=== PATIENT | male | born 1975 | race Caucasian/White ===

== ENCOUNTER 2024-01-19 08:55 | Emergency (ER) | payer OTHER, SELFPAY ==
[2024-01-19 09:12] VITALS: BP 135/71
--- NOTE | 2024-01-19 09:41 | ED.GENMED ---
History of Present Illness
General
Chief Complaint: Skin Surface Trauma
Source: patient
Time Seen by Provider: 01/19/24 09:25
History of Present Illness
History of Present Illness:
48-year-old male with no significant past medical history presenting to the emergency department for evaluation after he punched a glass door last night around 9 PM. At the time he sustained injury to the right thumb, index and middle finger but
states due to intoxication he decided just to put duct tape around the area. This morning patient still noted bleeding so change the duct tape to multiple bandages and decided to come to the ER for further evaluation. Patient notes that he drinks
alcohol nightly. He is right-hand dominant, tetanus is up-to-date and no other injuries were sustained. 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
Past History
Past History
ED Past Medical History: Psychiatric
ED Past Surgical History: Orthopedic
Social History
Tobacco: Non-smoker
Alcohol: Daily
Drug: None
Personal:
Living: with family
Employment: Employed
Review of Systems
Review of Systems
All Other Systems: ROS reviewed and negative except as documented in HPI and ROS
Phy Exam
Physical Exam
Physical Exam:
AAO times three, in nad. Patient smells of alcohol and still appears intoxicated
Right Hand: Multiple superficial abrasions along the dorsal surface of the thumb. 2 separate small lacerations. most distal measures 0.8cm. most proximal measuring 5mm. No active bleeding. Right index finger: 2 cm partial-thickness laceration to
the dorsal aspect at the level of the PIP joint without any active bleeding. Right middle finger: Superficial abrasions without any active bleeding
Extrem: hand/wrist/fingers held in normal resting position
Flexor Tendons-Full active/passive ROM, nl flexion of all superficialis/profundus tendons against resistance
Extensor Tendons-Full active/passive ROM, and nl extension of all fingers against resistance
No FB seen on exam (s/p anesthesia)
Normal light tough
Pt denies sensation/concern for fracture, foreign body, excessive debris, numbness/tingling of fingers, weakness of fingers, of difficulty in moving any joint.
Scores
Heart Failure Risk
Heart Failure Risk Score: Not Applicable
Heart Score for Chest Pain Patients
STEMI patient?: Not applicable
Withdrawal Assessment of Alcohol
Withdrawal Assessment Completed?: Not applicable
Course
Orders/Labs/Results
Orders:
Orders
01/19/24 09:16
CR Hand - Right Min 3 Views Urgent
Comment:
Reason For Exam: pain
Vital Signs
Initial and Last Documented VS:
Initial Vital Signs
Temp Pulse Resp BP Pulse Ox
97.9 F 86 20 135/71 96
01/19/24 09:12 01/19/24 09:12 01/19/24 09:12 01/19/24 09:12 01/19/24 09:12
Last Documented Vital Signs
Temp Pulse Resp BP Pulse Ox
97.9 F 86 20 135/71 96
01/19/24 09:12 01/19/24 09:12 01/19/24 09:12 01/19/24 09:12 01/19/24 09:12
Procedures
Laceration Closure
Right Second Finger:
Status of Wound: clean
Size of Wound in cm: 2
Description of Wound Edges: sharp
Preparation: cleaned with saline and cleaned with Betadine
Anesthesia: Digital-Regional
Type of Closure: single layer closure
Skin Closure Material: 5-0 nylon
Number of sutures: 9
Right Thumb:
Status of Wound: clean
Size of Wound in cm: 1
Description of Wound Edges: sharp
Preparation: cleaned with saline and cleaned with Betadine
Anesthesia: Digital-Regional
Skin Closure Material: 5-0 nylon
Number of sutures: 4
Additional information:
More distal lac received 3 sutures and more proximal lac received 1 suture
MDM/Problems Addressed
Differential Diagnosis Includes:
Laceration, at this time I do not have concern for foreign body/fracture/tendon/nerve injury but given level of intoxication will obtain x-ray
MDM/Problems Addressed:
48-year-old male presenting emergency department for evaluation of a punching glass door last night sustaining injury to the right thumb index and middle finger. Index finger with the largest of the lacerations that will require repair. Repair as
above. I loosely approximated the skin given the duration that past after sustaining the laceration. Patient advised on wound care. Suture removal 10 to 12 days. Aware of return precautions to the ER.
*Radiology
Radiology exam reviewed: preliminary read by ED provider (No acute fracture or foreign body)
*Pulse Oximetry
Patient hypoxic: no
*Critical Care Note
Total Time (30-74mins, 75-104mins- exclusive of procedures): Not Applicable
ED Attending Note
-
Portions of this chart may have been created with voice recognition software.� Occasional wrong word or��sound alike� substitutions may have occurred due to the inherent limitations of voice recognition software.
Discharge Plan
Departure
Patient Disposition: Home (Routine Discharge)
Date of Disposition: 01/19/24
Time of Disposition: 10:25
Patient with high blood pressure during this ER visit?: No
Discharge Problem:
Laceration of right index finger, Laceration of right thumb, Abrasion of hand, right
Instructions: Laceration Repair With Stitches (DC)
Prescriptions:
No Action
sulfamethoxazole-trimethoprim 1 TABLET tablet
1 tab PO BID Qty: 13 0RF
cephalexin 500 MG capsule
500 mg PO QID Qty: 28 0RF
Referrals:
Kari Gonzalez [Family Provider] -
Activity Restrictions/Additional Instructions:
Suture removal in 10-12 days
Interventions
Interventions:
*Risk Screen - Suicide Last Done: 01/19/24 09:12
*General Assessment Last Done: 01/19/24 09:12
*Neglect/Abuse Screening Last Done: 01/19/24 09:12
Discharge Date and Time
Print Language: SINHALA
== END 2024-01-19 10:31 | disposition home or self-care (01) ==
LOC: EMR 08:55
PROVIDERS: EMERGENCY PHYSICIAN Emergency Medicine; FAMILY PHYSICIAN Family Medicine Hospice and Palliative Medicine
DX: S61.210A Laceration without foreign body of right index finger without damage to nail, initial encounter (principal); S61.011A Laceration without foreign body of right thumb without damage to nail, initial encounter; W25.XXXA Contact with sharp glass, initial encounter
CPT/HCPCS: 99283; 12001; 73130

== ENCOUNTER 2024-05-13 09:23 | Emergency (ER) | payer OTHER, SELFPAY ==
[2024-05-13 09:25] VITALS: BP 116/75
--- NOTE | 2024-05-13 09:25 | ED.GENMED ---
ED Provider Triage
<Becky Pugh PA-C - Last Filed: 05/13/24 09:30>
-
Patient seen by provider in Triage?: Seen in Triage
Attestation: A medical screening examination has been initiated by a qualified medical provider. Based on the assessment performed at this time, it has been determined that an emergent medical condition may exist and the patient has been informed
that further medical evaluation and possible additional diagnostic testing may be needed.
HPI: 49yoM here with R upper back/scapular pain x 2 days. Started after chopping wood. Worse with certain positions. Also c/o SOB.
GENERAL: Alert , in no apparent distress
EYE: No visual abnormalities.
NECK: Trachea midline
ENT: No visible abnormalities.
LUNGS: No acute respiratory distress
NEUROLOGICAL: Alert and oriented
SKIN: Skin intact. No visible changes.
MUSCULOSKELETAL: Moving extremities normally
PSYCH: Normal and appropriate interaction.
This is a medical evaluation conducted in person to initiate diagnostic evaluation and provide initial therapeutics. Please see further documentation by the treating clinician.
CXR ordered.
History of Present Illness
<Becky Pugh PA-C - Last Filed: 05/13/24 09:30>
General
Chief Complaint: Musculo-Skeletal Complaint
Time Seen by Provider: 05/13/24 10:55
<Emil Asencio Jr., PA-C - Last Filed: 05/13/24 12:02>
General
Source: patient
Exam Limitations: none
Nursing documentation reviewed up to this point in time: agreed with
History of Present Illness
History of Present Illness:
49-year-old male presenting to the emergency department today with concerns of right upper back pain with some associated shortness of breath starting yesterday morning. The day prior he was chopping wood unsure of any specific injuries. Denies
any specific chest pain no history of similar issues no history of vascular disease or early family heart disease.
Past History
<Becky Pugh PA-C - Last Filed: 05/13/24 09:30>
Past History
ED Past Medical History: Psychiatric
ED Past Surgical History: Orthopedic
Social History
Tobacco: Non-smoker
Alcohol: Daily
Drug: None
Personal:
Living: with family
Employment: Employed
Review of Systems
<Emil Asencio Jr., PA-C - Last Filed: 05/13/24 12:02>
Review of Systems
Allergies reviewed?: Yes
All Other Systems: ROS reviewed and negative except as documented in HPI and ROS
Phy Exam
<Emil Asencio Jr., PA-C - Last Filed: 05/13/24 12:02>
Physical Exam
Physical Exam:
GENERAL: Alert , in no apparent distress
EYE: pupils equal and reactive
NECK: Supple, no significant adenopathy.
ENT: o/p clr, mmm.
CARDIAC: Regular rate and rhythm .
LUNGS: Clear breath sounds bilaterally, no acute respiratory distress, no wheezes/rales/rhonchi
ABDOMEN: Soft, without focal tenderness, no r/g, no cvat
NEUROLOGICAL: Alert and oriented, no focal neuro deficits
SKIN: Warm and dry, skin intact.
MUSCULOSKELETAL: No edema, well perfused.
PSYCH: Normal and appropriate interaction.
Course
<Becky Pugh PA-C - Last Filed: 05/13/24 09:30>
Orders/Labs/Results
Orders:
Orders
05/13/24 09:29
CR Chest - 2 Views Urgent
Comment:
Reason For Exam: R upper back pain
05/13/24 11:01
EKG [Electrocardiogram (*1)] Urgent
Reason for Study: Chest Pain
EKG- Treatment ONCE
Ketorolac [Toradol] 30 mg IM NOW STA
Vital Signs
Initial and Last Documented VS:
Initial Vital Signs
Temp Pulse Resp BP Pulse Ox
97.7 F 85 16 116/75 98
05/13/24 09:25 05/13/24 09:25 05/13/24 09:25 05/13/24 09:25 05/13/24 09:25
Last Documented Vital Signs
Temp Pulse Resp BP Pulse Ox
97.7 F 85 16 116/75 98
05/13/24 09:25 05/13/24 09:25 05/13/24 09:25 05/13/24 09:25 05/13/24 09:25
<Emil Asencio Jr., PA-C - Last Filed: 05/13/24 12:02>
Orders/Labs/Results
Orders:
Orders
05/13/24 09:29
CR Chest - 2 Views Urgent
Comment:
Reason For Exam: R upper back pain
05/13/24 11:01
EKG [Electrocardiogram (*1)] Urgent
Reason for Study: Chest Pain
EKG- Treatment ONCE
Ketorolac [Toradol] 30 mg IM NOW STA
Vital Signs
Initial and Last Documented VS:
Initial Vital Signs
Temp Pulse Resp BP Pulse Ox
97.7 F 85 16 116/75 98
05/13/24 09:25 05/13/24 09:25 05/13/24 09:25 05/13/24 09:25 05/13/24 09:25
Last Documented Vital Signs
Temp Pulse Resp BP Pulse Ox
97.7 F 85 16 116/75 98
05/13/24 09:25 05/13/24 09:25 05/13/24 09:25 05/13/24 09:25 05/13/24 09:25
<Emil Asencio Jr., PA-C - Last Filed: 05/13/24 12:02>
MDM/Problems Addressed
MDM/Problems Addressed:
49-year-old male presenting to the emergency department today with concerns of right upper back pain started the day after chopping wood started yesterday morning. No chest pain is breathing readily lungs are clear heart sounds normal vaguely
reproducible with some positioning on examination no overlying skin changes. Chest x-ray without acute abnormalities EKG is normal. No signs of ischemia or arrhythmia. Patient generally well-appearing significant improvement of symptoms after
receiving Toradol. Patient appears stable for outpatient management with likely mechanical pain. Return precautions given.
<Emil Asencio Jr., PA-C - Last Filed: 05/13/24 12:02>
*Critical Care Note
Total Time (30-74mins, 75-104mins- exclusive of procedures): Not Applicable
ED Attending Note
<Becky Pugh PA-C - Last Filed: 05/13/24 09:30>
-
Portions of this chart may have been created with voice recognition software.� Occasional wrong word or��sound alike� substitutions may have occurred due to the inherent limitations of voice recognition software.
Discharge Plan
Departure
Patient Disposition: Home (Routine Discharge)
Date of Disposition: 05/13/24
Time of Disposition: 12:00
Patient with high blood pressure during this ER visit?: No
Condition: Good
Covid-19: Not Applicable
Discharge Problem:
Pain in scapula
Instructions: Muscle and Bone Pain (DC)
Prescriptions:
New
meloxicam 15 mg tablet
15 mg PO DAILY Qty: 7 0RF
No Action
sulfamethoxazole-trimethoprim 1 TABLET tablet
1 tab PO BID Qty: 13 0RF
cephalexin 500 MG capsule
500 mg PO QID Qty: 28 0RF
Referrals:
Rao Ashford MD [Family Provider] -
Activity Restrictions/Additional Instructions:
You came to the emergency department today for concerns of right upper back discomfort.. A reassuring assessment with normal EKG and normal chest x-ray as well as reassuring physical examination. Please take the prescribed medications as this is
likely mechanical pain. Return to the emergency department immediately or concerning symptoms.
Interventions
Interventions:
*Risk Screen - Suicide Last Done: 05/13/24 11:11
*General Assessment Last Done: 05/13/24 11:11
*Neglect/Abuse Screening Last Done: 05/13/24 11:11
*ED COVID-19 Vaccine History Last Done: 05/13/24 11:11
ED-Musculoskeletal Assessment Last Done: 05/13/24 11:11
Discharge Date and Time
Print Language: MALAYSIAN
[2024-05-13] MEDS: TORADOL 30 MG IM (11:06)
[2024-05-13 12:13] VITALS: BP 137/94
== END 2024-05-13 12:15 | disposition home or self-care (01) ==
LOC: EMR 09:23
PROVIDERS: EMERGENCY PHYSICIAN Emergency Medicine; FAMILY PHYSICIAN Family Medicine
DX: M25.511 Pain in right shoulder (principal); M54.89 Other dorsalgia; R06.02 Shortness of breath
CPT/HCPCS: 96372; 99284; 71046; 93005